=== PATIENT | male | born 1955 | race American Indian/Alaskan Native ===

== ENCOUNTER 2018-10-21 08:06 | Outpatient (CLI) | payer OTHER ==
--- NOTE | 2018-10-21 10:10 | XRay Report ---
2 views of the bilateral hands INDICATION / CLINICAL INFORMATION: Arthritis. COMPARISON: None available. FINDINGS: BONES/JOINT(S): No acute fracture or subluxation. 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 Mild DJD in the thumb CMC joints and in the remainder of th e interphalangeal joints. No focal bone erosions or subluxations. SOFT TISSUES: No significant abnormality. ADDITIONAL FINDINGS: None. Signer Name: Say Howell MD Signed: 10/21/2018 9:05 AM Workstation Name: [id number]
== END 2018-10-21 08:07 | disposition home or self-care (01) ==
LOC: XRAY 08:06
PROVIDERS: ATTEND Internal Medicine
DX: Z02.71 Encounter for disability determination (principal); M19.042 Primary osteoarthritis, left hand; M19.041 Primary osteoarthritis, right hand